=== PATIENT | male | born 1975 ===

== ENCOUNTER 2016-09-27 17:39 | Emergency (ER) | payer OTHER ==
--- NOTE | 2016-09-27 19:52 | RAD ---
HISTORY: Midline tenderness status post injury COMPARISONS: None VIEWS: 6, Frontal, lateral, open-mouth odontoid, and bilateral oblique views of the cervical spine. FINDINGS: The cervical spine is visualized from the skull base through C7-T1. ALIGNMENT: The alignment is normal. VERTEBRAL BODIES: There is multilevel anterolateral marginal osteophyte formation most pronounced at C5-C6 JOINTS: There is osteoporosis of the lateral axial articulation and the uncovertebral and facet joints. On the oblique views, there is moderate neural foraminal narrowing on the left at C5-C6 and C6-C7. INTERVERTEBRAL DISCS: There is diffuse loss of intervertebral disc height. SOFT TISSUE: The prevertebral soft tissues are normal. OTHER: The skull base is normal. The lung apices are clear. IMPRESSION: DEGENERATIVE DISC DISEASE AND OSTEOARTHRITIS. NO ACUTE OSSEOUS INJURY TO THE CERVICAL SPINE
[2016-09-27 21:20] VITALS: BP 140/90
--- NOTE | 2016-10-19 09:45 | UC ---
Michi Guido Janilya, scribed for Sara Samuel DO on 09/27/16 at 1958 . Head Injury HPI - HPI Summary HPI Summary: A 41 y/o male came in to [facility] after having a skiing injury today at approximately 1430. Pt was skiing when he crashed and fell on the snow. Pt did not lose consciousness but felt abnormal immediately after. His right arm was tingly for a few minutes and his left arm went completely numb also for a few minutes. His arms feel normal now. After an hour of the incident, pt had visual changes that pt described were like "rainbow and some motion" in the left peripheral of his vision. Later, it moved to the center of his vision, and then later again to the right side of his vision. There is also a mild pinching neck pain rated 3/10. It radiates to the left of his shoulder. Nothing makes the pain better. Flexing head to the right side makes the pain slightly worse. Pt also has a BOATENG rated 2/10. There was nausea, dizziness, imbalance immediately after the incident; all resolved now. Pt denies brain fog or confusion. - History Of Current Complaint Chief Complaint: UCHeadInjury Stated Complaint: HEAD & NECK INJURY Time Seen by Provider: 09/27/16 18:43 Hx Obtained From: Patient Onset/Duration: Sudden Onset, Lasting Hours, Still Present Severity Currently: Moderate Severity Initially: Moderate Aggravating Factor(s): Nothing Alleviating Factor(s): Nothing Associated Signs And Symptoms: Positive: Neck Pain, Nausea - resolved. Negative : LOC (Time In Secs./Mins/Hrs), Confusion, Memory Loss, Epistaxis, Dental Malocclusion, Vomiting - Allergies/Home Medications Allergies/Adverse Reactions: Allergies Allergy/AdvReac Type Severity Reaction Status Date / Time No Known Allergies Allergy Verified 09/27/16 17:50 Home Medications: Home Medications NK [No Home Medications Reported] 09/27/16 [History Confirmed 09/27/16] PMH/Surg Hx/FS Hx/Imm Hx Previously Healthy: Yes Cardiovascular History Of: Reports: Cardiac Disorders - Mild arrthymia - Surgical History Surgical History: Yes Surgery Procedure, Year, and Place: RIGHT ACL - Family History Known Family History: Negative: Cardiac Disease, Hypertension, Diabetes - Social History Occupation: Employed Full-time Lives: With Family Alcohol Use: Weekly Substance Use Type: None Smoking Status (MU): Never Smoked Tobacco Review of Systems Constitutional: Negative Skin: Negative Eyes: Other - visual changes that are now resolved ENT: Negative Respiratory: Negative Cardiovascular: Negative Gastrointestinal: Other - nausea resolved now Genitourinary: Negative Motor: Negative Neurovascular: Negative Musculoskeletal: Arthralgia - pinching neck pain, Myalgia - pinching neck pain Neurological: Headache, Other - his R arm was tingly, his L arm was numb, both resolved now; dizziness and imbalance resolved now Psychological: Negative All Other Systems Reviewed And Are Negative: Yes Physical Exam Triage Information Reviewed: Yes Appearance: Well-Appearing, No Pain Distress, Well-Nourished Vital Signs: Initial Vital Signs Temp 98.5 F 09/27/16 17:51 Pulse 74 09/27/16 17:51 Resp 18 09/27/16 17:51 BP 130/80 09/27/16 17:51 Pulse Ox 97 09/27/16 17:51 Vital Signs Reviewed: Yes Eyes: Positive: Conjunctiva Clear. Negative: Discharge ENT: Positive: Hearing grossly normal. Negative: Muffled/hoarse voice Dental: Positive: Other: - Mild bite injury of right side of his tongue. Small chip in tooth 10. Neck exam: Normal Neck: Positive: Supple Respiratory: Positive: Lungs clear, Normal breath sounds, No respiratory distress, No accessory muscle use Cardiovascular: Positive: RRR, No Murmur Musculoskeletal Exam: Normal Musculoskeletal: Positive: Other: - Paraspinal tenderness on the left as well as midline tenderness in the cervical region. Neurological Exam: Other - A&Ox3, CN II-XII INTACT, SENSORY MOTOR INTACT, REFLEXES INTACT, NO CEREBELLAR SIGNS, FACIAL SYMMETRY, GAIT WNL Neurological: Positive: Alert, Muscle Tone Normal Psychological Exam: Normal Psychological: Positive: Age Appropriate Behavior Skin Exam: Normal Skin: Positive: Other - warm, dry, normal color Head Injury Course/Dx - Course Course Of Treatment: cervical xr neg for fx - Differential Dx/Diagnosis Differential Diagnosis/HQI/PQRI: Cervical Sprain, Concussion Without LOC Provider Diagnoses: cervical strain, concussion Discharge - Discharge Plan Condition: Stable Disposition: HOME Patient Education Materials: Cervical Strain (ED), Concussion (ED) Forms: *Work Release Referrals: Yuko Cortes MD [Primary Care Provider] - (FOLLOW UP IN 2-5 DAYS) Yoshi Tovar MD [Medical Doctor] - 2 Days Additional Instructions: YOU REQUIRE BRAIN REST UNTIL YOUR SYMPTOMS RESOLVE COMPLETELY. WHEN YOU FEEL LIKE YOURSELF AGAIN, RE-ENTER LIFE GRADUALLY. IF BRAIN STIMULATION CAUSES SYMPTOMS TO RECUR, YOU REQUIRE MORE REST. YOU WOULD LIKELY BENEFIT FROM OSTEOPATHIC TREATMENT. WE RECOMMEND THAT YOU FIND AN OSTEOPATHIC PHYSICIAN IN YOUR AREA WHO FOCUSES EXCLUSIVELY ON OSTEOPATHIC MANIPULATIVE MEDICINE WITH EXPERTISE IN MYOFACIAL, LYMPHATIC, VISCERAL AND INTEROSSEOUS WORK The documentation as recorded by the Michi [place]ana Janilya accurately reflects the service I personally performed and the decisions made by me, Sara Samuel DO.
== END 2016-09-27 21:20 | disposition home or self-care (01) ==
LOC: UCEAST 17:39
DX: S16.1XXA Strain of muscle, fascia and tendon at neck level, initial encounter (principal); S06.0X0A Concussion without loss of consciousness, initial encounter; V00.321A Fall from snow-skis, initial encounter; Y93.23 Activity, snow (alpine) (downhill) skiing, snowboarding, sledding, tobogganing and snow tubing; Y92.9 Unspecified place or not applicable
CPT/HCPCS: 72020; 72050; 99213; G0463